=== PATIENT | female | born 1955 | race Caucasian/White ===

== ENCOUNTER 2018-10-06 21:28 | Inpatient (IN) | payer OTHER, MEDICAID ==
[~2018-10-06] VITALS: Ht 157.5 cm; Wt 64.2 kg
[2018-10-06 22:34] LABS: UA SPECIFIC GRAVITY 1.015 (1.005-1.035); microscopic required? YES; urine erythrocyte NEGATIVE (NEGATIVE)
[2018-10-06 22:41] LABS: BASOPHIL % 0.5 % (0-2)
[2018-10-06 22:46] LABS: RED CELL DISTRIBUTION WIDTH 18.8 % (11.5-14.5)
[2018-10-06 22:47] LABS: PLATELET COUNT 521 x10^3mcL (130-400)
[2018-10-06 23:24] LABS: ALKALINE PHOSPHATASE 110 U/L (46-116); ALT/SGPT 25 U/L (14-59); AST/SGOT 14 U/L (15-37); BILIRUBIN TOTAL 0.3 mg/dL (0.20-1.00); CALCIUM 8.2 mg/dL (8.5-10.1); CARBON DIOXIDE 23.6 mmol/L (21-32); CHLORIDE SERUM 101 mmol/L (98-107); CREATININE SERUM 0.5 mg/dL (0.6-1.0); FREE T4 1.39 ng/dL (0.76-1.46); GFR1 > 60 mL/min; GLUCOSE SERUM 201 mg/dL (74-106); LIPASE 134 IU/L (73-393); SODIUM SERUM 137 mmol/L (136-145); TOTAL PROTEIN, SERUM 7.6 g/dL (6.4-8.2)
[2018-10-06 23:30] LABS: ALBUMIN 1.4 g/dL (3.4-5.0)
[2018-10-06 23:31] LABS: POTASSIUM SERUM 2.9 mmol/L (3.5-5.1)
[2018-10-07] VITALS (7 sets, daily range): BP systolic 114–135; BP diastolic 49–67; Ht 157.5 cm; Wt 64.2 kg
[2018-10-07 01:31] LABS: CHOLESTEROL/HDL RATIO 2.8; MAGNESIUM 1.7 mg/dL (1.8-2.4); PHOSPHOROUS 2.9 mg/dL (2.5-4.9)
[2018-10-07] MEDS ORDERED: LIPI10 GT (03:19)
[2018-10-07] MEDS ORDERED: GABAPENTIN250 MG/5 M GT (03:20)
[2018-10-07] MEDS ORDERED: NOR5 GT (03:21)
[2018-10-07] MEDS ORDERED: LOV40I INJ (03:21)
[2018-10-07 06:41] LABS: BASOPHIL % 0.4 % (0-2)
[2018-10-07 06:54] LABS: CALCIUM 7.9 mg/dL (8.5-10.1); CARBON DIOXIDE 21.7 mmol/L (21-32); CHLORIDE SERUM 106 mmol/L (98-107); CREATININE SERUM 0.5 mg/dL (0.6-1.0); GFR1 > 60 mL/min; GLUCOSE SERUM 173 mg/dL (74-106); MAGNESIUM 1.8 mg/dL (1.8-2.4); POTASSIUM SERUM 3.6 mmol/L (3.5-5.1); SODIUM SERUM 139 mmol/L (136-145)
[2018-10-07 08:24] LABS: PLATELET COUNT 410 x10^3mcL (130-400); RED CELL DISTRIBUTION WIDTH 18.2 % (11.5-14.5)
[2018-10-07] MEDS ORDERED: INVANZ1 GM IV (15:48)
[2018-10-07] MEDS ORDERED: FLUCONAZOLE100 MG PO (15:49)
== END 2018-10-07 17:54 | DRG 871 ==
LOC: ED 21:28 → DU 10-07 00:07
PROVIDERS: Emergency Medicine; ADMIT Family Medicine
DX: A41.9 Sepsis, unspecified organism (principal); N17.0 Acute kidney failure with tubular necrosis; E43 Unspecified severe protein-calorie malnutrition; L89.153 Pressure ulcer of sacral region, stage 3; E11.52 Type 2 diabetes mellitus with diabetic peripheral angiopathy with gangrene; I96 Gangrene, not elsewhere classified; E11.65 Type 2 diabetes mellitus with hyperglycemia; L89.622 Pressure ulcer of left heel, stage 2; I10 Essential (primary) hypertension; E87.6 Hypokalemia; E78.5 Hyperlipidemia, unspecified; E83.42 Hypomagnesemia; D50.9 Iron deficiency anemia, unspecified; Z93.1 Gastrostomy status; Z74.01 Bed confinement status; Z99.3 Dependence on wheelchair; Z68.24 Body mass index [BMI] 24.0-24.9, adult; Z89.611 Acquired absence of right leg above knee; Z79.84 Long term (current) use of oral hypoglycemic drugs
CPT/HCPCS: 82962; 83880; 84439; 87804; J1335; J1450; J2543; J3370; J3475; J7030; J7040; P9016; Q0092; Q0163